=== PATIENT | male | born 1970 | race Caucasian/White ===

== ENCOUNTER 2018-04-28 11:28 | Emergency (ER) | payer OTHER ==
[2018-04-28 11:44] VITALS: BP 132/82
--- NOTE | 2018-04-28 12:07 | UC ---
Laceration HPI - HPI Summary HPI Summary: Today slipped and hit his L cheek no corner of a blunt counter top. Had a bleeding laceration and came here. denies tooth pain, eye pain, jaw pain, tingling/numbness. - History Of Current Complaint Chief Complaint: UCLaceration Stated Complaint: LAC ON FACE Time Seen by Provider: 04/28/18 11:47 Hx Obtained From: Patient Laceration Location: Cheek Pain Intensity: 0 - Allergies/Home Medications Allergies/Adverse Reactions: Allergies Allergy/AdvReac Type Severity Reaction Status Date / Time No Known Allergies Allergy Verified 04/28/18 11:44 PMH/Surg Hx/FS Hx/Imm Hx Previously Healthy: Yes - Surgical History Surgical History: Yes Surgery Procedure, Year, and Place: WISDOM TEETH. Hernia repair x 2 - Family History Known Family History: Positive: None, Other - NONCONTRIBUTORY - Social History Alcohol Use: Daily Alcohol Amount: 1-2 Substance Use Type: None Smoking Status (MU): Former Smoker Amount Used/How Often: 1 PPD X 10 YEARS Have You Smoked in the Last Year: No When Did the Patient Quit Smoking/Using Tobacco: 17 YEARS AGO Review of Systems All Other Systems Reviewed And Are Negative: Yes Constitutional: Positive: Negative Skin: Positive: Other - L cheek pain Eyes: Negative: Blurred Vision ENT: Negative: Dental Pain, Sinus Pain/Tenderness Neurological: Negative: Headache, Numbness Physical Exam Triage Information Reviewed: Yes Appearance: Well-Appearing Vital Signs: Initial Vital Signs Temp 97.8 F 04/28/18 11:40 Pulse 83 04/28/18 11:40 Resp 16 04/28/18 11:40 BP 132/82 04/28/18 11:40 Pulse Ox 98 04/28/18 11:40 Vital Signs Reviewed: Yes ENT: Negative: Dental tenderness Musculoskeletal Exam: Other - able to open/close jaw/mouth. Neurological: Positive: Other: - able to smile, raise eye brows, blow out cheeks. Skin: Positive: Other - L upper cheek near eye; 1.5 cm laceration. No bruising or swelling Laceration Repair - Laceration Repair 5 Description: Stellate - minimally Laceration Size After Repair: Length (cm) Contamination/FB Removal: n Debridement: n Type Injection: Local Anesthesia Used: 0.5% Lido Cleansing Completed Via Routine Prep: Yes Irrigation With Pressure Irrigation Device: Yes Closure Material: SteriStrips - 1, Sutures - 5 Suture Of: Skin Suture Type: Nylon Laceration Course/Dx - Course/Dx Course Of Treatment: Fell onto L cheek on corner of counter which was rounded. Bleeding had stopped when he came to urgent care. Lac required 5 simple interrupted sutures, and 1 strip. Min. blood loss. area was cleaned and dressed. No oral mucosal or nerve involvement based on today's exam. reviewed s/sx of when to return to Urgent care. - Differential Dx - Laceration/Wound Differental Diagnoses: Fracture, Laceration - Diagnosis Provider Diagnosis: Laceration of face Discharge - Sign-Out/Discharge Documenting (check all that apply): Patient Departure All imaging exams completed and their final reports reviewed: Yes - Discharge Plan Condition: Good Disposition: HOME Patient Education Materials: Care For Your Stitches (ED) Referrals: hCelsie Foster MD [Primary Care Provider] - Additional Instructions: Please follow up with primary care or come back to the urgent care for suture removal in 5 DAYS. If you wait longer than that there is risk of the skin growing over the sutures. - Billing Disposition and Condition Condition: GOOD Disposition: Home
[2018-04-28] MEDS ORDERED: Lidocaine 1%* 5 ML VIAL INJ ONE (12:08)
== END 2018-04-28 13:28 | disposition home or self-care (01) ==
LOC: UCEAST 11:28
DX: S01.81XA Laceration without foreign body of other part of head, initial encounter (principal); Z87.891 Personal history of nicotine dependence; W01.198A Fall on same level from slipping, tripping and stumbling with subsequent striking against other object, initial encounter; Y92.9 Unspecified place or not applicable
CPT/HCPCS: 12001; 70150; 99211; G0463

== ENCOUNTER 2018-05-01 13:54 | Emergency (ER) | payer SELFPAY ==
[2018-05-01 14:03] VITALS: BP 134/88
[2018-05-01] MEDS ORDERED: Tetan/Diph/Pertus SYR(Tdap)* 0.5 ML SYR(BOOSTRIX) use SYR IM ONE (15:06)
--- NOTE | 2018-05-01 15:08 | UC ---
Skin Complaint HPI - HPI Summary HPI Summary: Was here 2 days ago and received 5 sutures for a laceration. Since then it was healing well. Did noticed redness and mild swelling since yesterday. He is also here for a tetanus shot since he was not up to date . - History of Current Complaint Chief Complaint: UCSkin Time Seen by Provider: 05/01/18 14:46 Stated Complaint: WOUND RECHECK Hx Obtained From: Patient Onset/Duration: Sudden Onset Pain Intensity: 1 Pain Scale Used: 0-10 Numeric - Allergy/Home Medications Allergies/Adverse Reactions: Allergies Allergy/AdvReac Type Severity Reaction Status Date / Time No Known Allergies Allergy Verified 05/01/18 14:03 Home Medications: Home Medications Mometasone Furoate [Nasonex] 50 mcg NA DAILY PRN 05/01/18 [History Confirmed 05/19] PMH/Surg Hx/FS Hx/Imm Hx Previously Healthy: Yes - Surgical History Surgical History: Yes Surgery Procedure, Year, and Place: WISDOM TEETH. Hernia repair x 2 - Family History Known Family History: Positive: None, Other - NONCONTRIBUTORY - Social History Alcohol Use: Daily Alcohol Amount: 1-2 drinks Substance Use Type: None Smoking Status (MU): Former Smoker Amount Used/How Often: 1 PPD X 10 YEARS Have You Smoked in the Last Year: No When Did the Patient Quit Smoking/Using Tobacco: 17 YEARS AGO - Immunization History Most Recent Tetanus Shot: 2008 Review of Systems All Other Systems Reviewed And Are Negative: Yes Constitutional: Positive: Fever Skin: Positive: Other - swelling and redness on L cheek Eyes: Positive: Other - denies eye pain ENT: Negative: Dental Pain Respiratory: Positive: Negative Cardiovascular: Positive: Negative Physical Exam Triage Information Reviewed: Yes Appearance: Well-Appearing Vital Signs: Initial Vital Signs Temp 97.9 F 05/01/18 13:59 Pulse 78 05/01/18 13:59 Resp 14 05/01/18 13:59 BP 134/88 05/01/18 13:59 Pulse Ox 98 05/01/18 13:59 Vital Signs Reviewed: Yes Skin: Positive: Other - L upper cheek at repaired laceration site has minimal swelling and mild redness, nontender. Course/Dx - Course Course Of Treatment: Superficial infection after laceration repair on L upper cheek for which we will tx w/ antibiotic. We have given him his tetanus as well. he has f/u for suture removal in a few more days. - Differential Diagnoses - Skin Complaint Differential Diagnoses: Cellulitis, MRSA, Other - Diagnoses Provider Diagnosis: Superficial skin infection Discharge - Sign-Out/Discharge Documenting (check all that apply): Patient Departure All imaging exams completed and their final reports reviewed: No Studies - Discharge Plan Condition: Good Disposition: HOME Prescriptions: Sulfamethox/Trimethoprim DS* [Bactrim DS 800/160 TAB*] 1 tab PO BID #14 tab Patient Education Materials: Acute Wound Care (ED) Referrals: Chelsie Foster MD [Primary Care Provider] - Additional Instructions: If worsening please follow up with your pcp. - Billing Disposition and Condition Condition: GOOD Disposition: Home
== END 2018-05-01 15:30 | disposition home or self-care (01) ==
LOC: UCEAST 13:54
DX: S01.412D Laceration without foreign body of left cheek and temporomandibular area, subsequent encounter (principal); L08.9 Local infection of the skin and subcutaneous tissue, unspecified; Z87.891 Personal history of nicotine dependence; X58.XXXD Exposure to other specified factors, subsequent encounter
CPT/HCPCS: 90471; 90715; 99212; G0463

== ENCOUNTER 2018-05-04 09:01 | Emergency (ER) | payer SELFPAY ==
[2018-05-04 09:08] VITALS: BP 128/84
--- NOTE | 2018-05-04 10:04 | UC ---
Laceration HPI - HPI Summary HPI Summary: 47 yo male presents for stitch removal. He tells me that he had 5 stitches placed on 04/28 s/p fall. He was then seen a couple days later due to a concern for infection and was placed on bactrim. Since that time the area has significantly improved and has no pain, redness, swelling, drainage, fever, or chills. - History Of Current Complaint Chief Complaint: UCLaceration Stated Complaint: STITCHES REMOVED Time Seen by Provider: 05/04/18 10:02 Hx Obtained From: Patient Laceration Location: Face Pain Intensity: 0 Pain Scale Used: 0-10 Numeric - Allergies/Home Medications Allergies/Adverse Reactions: Allergies Allergy/AdvReac Type Severity Reaction Status Date / Time No Known Allergies Allergy Verified 05/04/18 09:08 PMH/Surg Hx/FS Hx/Imm Hx - Additional Past Medical History Additional PMH: Allergies - Surgical History Surgical History: Yes Surgery Procedure, Year, and Place: WISDOM TEETH. Hernia repair x 2 - Family History Known Family History: Positive: None, Other - NONCONTRIBUTORY - Social History Occupation: Employed Full-time Lives: With Family Alcohol Use: Daily Alcohol Amount: 1-2 drinks Substance Use Type: None Smoking Status (MU): Former Smoker Amount Used/How Often: 1 PPD X 10 YEARS Have You Smoked in the Last Year: No When Did the Patient Quit Smoking/Using Tobacco: 17 YEARS AGO - Immunization History Most Recent Tetanus Shot: 2008 Review of Systems All Other Systems Reviewed And Are Negative: Yes Constitutional: Positive: Negative Skin: Positive: Other - Stitches left face Respiratory: Positive: Negative Cardiovascular: Positive: Negative Neurovascular: Positive: Negative Neurological: Positive: Negative Psychological: Positive: Negative Physical Exam - Summary Physical Exam Summary: GENERAL: NAD. WDWN. No pain distress. SKIN: LEFT CHEEK: Five stitches [address]. Well approximated without erythema, edema, drainage, or pain. CHEST: No accessory muscle use. Breathing comfortably and in no distress. CV: Pulses intact. Cap refill <2seconds NEURO: Alert. PSYCH: Age appropriate behavior. Triage Information Reviewed: Yes Vital Signs: Initial Vital Signs Temp 97.6 F 05/04/18 09:04 Pulse 52 05/04/18 09:04 Resp 16 05/04/18 09:04 BP 128/84 05/04/18 09:04 Pulse Ox 98 05/04/18 09:04 Vital Signs Reviewed: Yes Laceration Course/Dx - Course/Dx Course Of Treatment: Stitches removed without issue. Laceration well approximated and healed. - Diagnosis Provider Diagnosis: Visit for suture removal Discharge - Sign-Out/Discharge Documenting (check all that apply): Patient Departure All imaging exams completed and their final reports reviewed: No Studies - Discharge Plan Condition: Stable Disposition: HOME Patient Education Materials: Stitches Removal (ED) Referrals: Chelsie Foster MD [Primary Care Provider] - Additional Instructions: If you develop a fever, shortness of breath, chest pain, new or worsening symptoms - please call your PCP or go to the ED. - Billing Disposition and Condition Condition: STABLE Disposition: Home
== END 2018-05-04 10:09 | disposition home or self-care (01) ==
LOC: UCEAST 09:01
DX: X58.XXXD Exposure to other specified factors, subsequent encounter (principal); T14.8XXD Other injury of unspecified body region, subsequent encounter; F17.210 Nicotine dependence, cigarettes, uncomplicated